=== PATIENT | female | born 1995 | race African-American/Black ===

== ENCOUNTER 2020-07-31 20:25 | Emergency (ER) | payer OTHER ==
[~2020-07-31] VITALS: Ht 160 cm; Wt 63.0 kg
[2020-07-31 21:55] LABS: BASO % 0.5 % (0.0-1.0); EOS # 0.1 10^3/uL (0.0-0.5); EOS % 1.2 % (0.0-3.0); HEMATOCRIT 38.6 % (36.0-47.0); HEMOGLOBIN 11.2 g/dl (12.0-15.5); LYMPH # 2.7 10^3/uL (1.5-5.0); LYMPH % 45.2 % (24.0-44.0); MONO # 0.6 10^3/uL (0.0-0.8); MONO % 10.4 % (0.0-5.0); NEUTROPHILS # 2.5 10^3/uL (1.5-8.5); NEUTROPHILS % 42.5 % (36.0-66.0); PLATELET COUNT, AUTOMATED 319 10^3/uL (150-450); RED BLOOD COUNT 5.08 10^6/uL (4.00-5.40); WHITE BLOOD COUNT 5.9 10^3/uL (4.0-10.0)
[2020-07-31 22:20] LABS: HCG, SERUM QUALITATIVE NEGATIVE (NEGATIVE)
[2020-07-31 22:23] LABS: BLOOD UREA NITROGEN 18 MG/DL (7-18); GLUCOSE, FASTING 76 MG/DL (70-100)
[2020-07-31 22:24] LABS: ALBUMIN 3.5 GM/DL (3.2-5.2); ALT/SGPT 16 U/L (12-78); BILIRUBIN,DIRECT < 0.1 MG/DL (0.0-0.2); BILIRUBIN,TOTAL 0.2 MG/DL (0.2-1.0); CALCIUM LEVEL 9.1 MG/DL (8.5-10.1); CARBON DIOXIDE LEVEL 29 MEQ/L (21-32); CHLORIDE LEVEL 105 MEQ/L (98-107); GLOMERULAR FILTRATION RATE > 60.0 (>60); LIPASE 99 U/L (73-393); POTASSIUM SERUM 4.3 MEQ/L (3.5-5.1); SODIUM LEVEL 139 MEQ/L (136-145); TOTAL PROTEIN 7.7 GM/DL (6.4-8.2)
[2020-07-31] MEDS ORDERED: KETOROLAC 30 MG/ML 1ML VIAL IV ONE (23:15)
--- NOTE | 2020-08-01 00:55 | REPVR ---
PROCEDURE INFORMATION: Exam: US Pelvis Complete, Transabdominal and US Pelvis, Transvaginal Exam date and time: 08/01/2020 12:13 AM Age: 24 years old Clinical indication: Pelvic pain TECHNIQUE: Imaging protocol: Real-time transabdominal and transvaginal pelvic ultrasound (complete) with image documentation. Transvaginal imaging was used for better evaluation of the endometrium, adnexa, and/or cervix. COMPARISON: No relevant prior studies available. FINDINGS: Uterus/cervix: Uterus measures 6.8 x 3.6 x 4.9 cm. Endometrium measures 17 mm. Right adnexa: Right ovary measures 3.8 x 1.7 x 2.4 cm. Negative for right ovarian torsion. Complex tubular structure at the right adnexa adjacent to the right ovary measuring up to 5.9 x 0.9 x 4.0 cm. Left adnexa: Left ovary measures 2.6 x 1.6 x 2.2 cm. Negative for left ovarian torsion. Intraperitoneal space: No intraperitoneal fluid. Urinary bladder: Normal. IMPRESSION: 1. Complex tubular structure at the right adnexal adjacent to the right ovary measuring up to 5.9 x 0.9 x 4.0 cm. Consider pyosalpinx or hematosalpinx. 2. Thickened endometrium measures 17 mm. Electronically signed by: Jeremiah Drake On 08/01/2020 00:55:58 AM
[2020-08-01] MEDS ORDERED: ISOVUE-370 76% 100ML VIAL As Ordered ONE (01:33)
[2020-08-01 01:36] LABS: HCG, SERUM QUANTITATIVE < 1.0 MIU/ML
--- NOTE | 2020-08-01 01:56 | REPVR ---
PROCEDURE INFORMATION: Exam: CT Abdomen And Pelvis With Contrast Exam date and time: 08/01/2020 1:27 AM Age: 24 years old Clinical indication: Abdominal pain; Localized; Right lower quadrant (rlq); Additional info: Rlq pain, hematosalpinx on US, rule out appendicitis TECHNIQUE: Imaging protocol: Computed tomography of the abdomen and pelvis with intravenous contrast. Radiation optimization: All CT scans at this facility use at least one of these dose optimization techniques: automated exposure control; mA and/or kV adjustment per patient size (includes targeted exams where dose is matched to clinical indication); or iterative reconstruction. Contrast material: ISO; Contrast volume: 100 ml; Contrast route: INTRAVENOUS (IV); COMPARISON: US PELVIC NON-OB COMPLETE 07/31/2020 11:55 PM FINDINGS: Liver: Normal. No mass. Gallbladder and bile ducts: Normal. No calcified stones. No ductal dilation. Pancreas: Normal. No ductal dilation. Spleen: Normal. No splenomegaly. Adrenal glands: Normal. No mass. Kidneys and ureters: Normal. No hydronephrosis. Stomach and bowel: Unremarkable. No obstruction. No mucosal thickening. Appendix: The appendix is normal. Intraperitoneal space: Trace free fluid within the pelvis. Vasculature: Unremarkable. No abdominal aortic aneurysm. Lymph nodes: Mild right lower quadrant adenopathy. Urinary bladder: Unremarkable as visualized. Reproductive: Tubular cystic structure at the right adnexa measuring 3.5 by 2.4 by 3.5 cm. There are adjacent infiltrative changes. Bones/joints: Unremarkable. No acute fracture. Soft tissues: Small fat containing umbilical hernia. IMPRESSION: 1. Tubular cystic structure at the right adnexa with adjacent infiltrative changes, better visualized on recent ultrasound examination. Suspect pyosalpinx/TOA. 2. Normal appendix. Electronically signed by: Jeremiah Drake On 08/01/2020 01:57:04 AM
[2020-08-01] MEDS ORDERED: NORCO 5/325MG TABLET (BULK FOR ED) PO ONE (02:00)
[2020-08-01] MEDS ORDERED: NAPR-837 PO (02:10)
[2020-08-01] MEDS ORDERED: HYDR-3713 PO (02:10)
[2020-08-01 02:22] VITALS: BP 112/64
--- NOTE | 2020-08-01 07:47 | ED PDOC ---
Post-Departure Follow-Up radiology report faxed to Megan Chaudhari MD Aug 01, 2020 07:47
== END 2020-08-01 02:24 | disposition home or self-care (01) ==
LOC: M ED 20:25
DX: N83.6 Hematosalpinx (principal); R10.9 Unspecified abdominal pain
CPT/HCPCS: 74177; 76856; 80048; 80076; 81001; 83690; 84702; 84703; 85025; 96374; 99284; J1885; Q9967

== ENCOUNTER 2021-04-17 15:53 | Emergency (ER) | payer OTHER ==
[~2021-04-17] VITALS: Ht 160 cm; Wt 71.2 kg
[2021-04-17 15:53] VITALS: BP 143/74
[~2021-04-17 15:53] MED LIST: HYDR-3713 PO; NAPR-837 PO
[2021-04-17 17:26] LABS: BASO % 0.5 % (0.0-1.0); EOS # 0.1 10^3/uL (0.0-0.5); EOS % 1.3 % (0.0-3.0); HEMATOCRIT 38.2 % (36.0-47.0); HEMOGLOBIN 11.6 g/dl (12.0-15.5); LYMPH # 2.4 10^3/uL (1.5-5.0); MEAN CORPUSCULAR HEMOGLOBIN 22.9 pg (27.0-33.0); MEAN CORPUSCULAR HGB CONC 30.4 g/dl (32.0-36.5); MEAN CORPUSCULAR VOLUME 75.3 fl (80.0-96.0); MONO # 0.5 10^3/uL (0.0-0.8); NEUTROPHILS # 3.1 10^3/uL (1.5-8.5); NEUTROPHILS % 50.9 % (36.0-66.0); PLATELET COUNT, AUTOMATED 376 10^3/uL (150-450); RED BLOOD COUNT 5.07 10^6/uL (4.00-5.40); WHITE BLOOD COUNT 6.2 10^3/uL (4.0-10.0)
== END 2021-04-17 18:11 | disposition home or self-care (01) ==
LOC: M ED 15:53
DX: Z32.02 Encounter for pregnancy test, result negative (principal); N93.9 Abnormal uterine and vaginal bleeding, unspecified

== ENCOUNTER → 2021-07-16 | Outpatient (CLI) | payer OTHER | LOC: M PLALAB 15:29 | PROVIDERS: ATTEND Surgery | DX: Z13.79 Encounter for other screening for genetic and chromosomal anomalies (principal) ==

== ENCOUNTER → 2021-08-14 | Outpatient (CLI) | payer OTHER | LOC: M WHC 15:01 | PROVIDERS: ATTEND Surgery | DX: R92.8 Other abnormal and inconclusive findings on diagnostic imaging of breast (principal); N63.22 Unspecified lump in the left breast, upper inner quadrant ==

== ENCOUNTER → 2021-08-20 | Outpatient (CLI) | payer OTHER ==
[2021-08-20 13:00] VITALS: BP 108/60
== END ==
LOC: M WHCPRO 10:45
PROVIDERS: ATTEND Surgery
DX: N60.82 Other benign mammary dysplasias of left breast (principal)

== ENCOUNTER → 2021-11-27 | Outpatient (CLI) | payer OTHER ==
[~2021-11-27] MED LIST changes: +PRENTAB53 PO
== END ==
LOC: M LABSMTC 09:06
PROVIDERS: ATTEND Anesthesiology
DX: Z01.812 Encounter for preprocedural laboratory examination (principal); Z20.822 Contact with and (suspected) exposure to COVID-19

== ENCOUNTER 2021-12-02 08:01 | Observation (INO) | payer OTHER ==
[2021-12-02] VITALS (7 sets, daily range): BP systolic 101–136; BP diastolic 50–88
[~2021-12-02] VITALS: Ht 160 cm; Wt 72.6 kg
[~2021-12-02 08:01] MED LIST changes: +HEPARIN SOD (PORCINE) 5000UNITS/ML 1ML VIAL/SYRINGE SQ ONE; +LIDOCAINE 1% MDV 20ML VIAL SQ PRN; +LR 1,000 ML IV ONE; +ceFAZolin SOD 2 GM in IV 1 EA IV ONE
[2021-12-02] MEDS ORDERED: fentaNYL 250 MCG/5 ML INJECTION As Ordered ONE (08:04)
[2021-12-02] MEDS ORDERED: ROCURONIUM BROMIDE 50 MG/5 ML VIAL As Ordered ONE ×2 (08:04→11:22)
[2021-12-02] MEDS ORDERED: MIDAZOLAM INJ 2MG/2ML VIAL (J2250 PER 1MG) As Ordered ONE (08:04)
[2021-12-02] MEDS ORDERED: propofoL 200 MG/20 ML VIAL As Ordered ONE (08:04)
[2021-12-02] MEDS ORDERED: LIDOCAINE 2% 100MG/5ML SDV (FOR ANES.) As Ordered ONE (08:04)
[2021-12-02] MEDS ORDERED: BUPIVACAINE HCL 0.25% 10ML VIAL As Ordered ONE (09:29)
[2021-12-02] MEDS ORDERED: BUPIVACAINE LIPOSOME/PF 1.3% 20ML VIAL (13.3MG/ML)(EXPAREL) As Ordered ONE (09:29)
[2021-12-02] MEDS ORDERED: SCOPOLAMINE 1MG TRANSDERMAL PATCH As Ordered ONE (10:19)
[2021-12-02] MEDS ORDERED: dexameTHASONE 4 MG/ML 1ML VIAL (J1100 PER 1MG) As Ordered ONE (10:31)
[2021-12-02] MEDS ORDERED: KETOROLAC 60MG 2ML VIAL As Ordered ONE (10:31)
[2021-12-02] MEDS ORDERED: ONDANSETRON 4MG/2ML VIAL As Ordered ONE (10:31)
[2021-12-02] MEDS ORDERED: ACETAMINOPHEN 1000MG 100ML IV BTL (OFIRMEV) (J0131 PER 10MG) As Ordered ONE (11:38)
[2021-12-02] MEDS ORDERED: HYDROmorphone HCL 2MG/ML 1ML VIAL As Ordered ONE (12:07)
[2021-12-02] MEDS ORDERED: SUGAMMADEX SODIUM 500 MG/5 ML VIAL (BRIDION) As Ordered ONE (12:53)
[2021-12-02] MEDS ORDERED: ONDANSETRON 4MG/2ML VIAL IV PRN ×2 (13:50→14:10)
[2021-12-02] MEDS ORDERED: ACETAMINOPHEN TAB 650MG DOSE (2X325MG) PO PRN (13:50)
[2021-12-02] MEDS ORDERED: MORPHINE 2 MG/ML 1ML VIAL IV PRN (13:50)
[2021-12-02] MEDS ORDERED: fentaNYL 100 MCG/2 ML INJECTION IV PRN (14:10)
[2021-12-02] MEDS ORDERED: LR 1,000 ML IV SCH (14:10)
[2021-12-02] MEDS ORDERED: oxyCODONE 5MG TAB PO PRN (14:10)
[2021-12-02] MEDS: ceFAZolin SOD 2 GM in IV 1 EA IV SCH (17:05)
[2021-12-02] MEDS: traMADol 50 MG TAB PO PRN (17:06)
[2021-12-02] MEDS: LR 1,000 ML IV SCH (19:34)
[2021-12-02] MEDS: HEPARIN SOD (PORCINE) 5000UNITS/ML 1ML VIAL/SYRINGE SQ SCH (22:17)
[2021-12-03 00:30] VITALS: BP 118/68
[2021-12-03] MEDS: LR 1,000 ML IV SCH (01:36)
[2021-12-03] MEDS: ceFAZolin SOD 2 GM in IV 1 EA IV SCH ×2 (01:36→09:57)
[2021-12-03 04:30] VITALS: BP 112/55
[2021-12-03] MEDS: HEPARIN SOD (PORCINE) 5000UNITS/ML 1ML VIAL/SYRINGE SQ SCH ×2 (05:30→14:00)
[2021-12-03] MEDS ORDERED: TRAM50TA2 PO (10:03)
[2021-12-03] MEDS: traMADol 50 MG TAB PO PRN (13:23)
== END 2021-12-03 14:05 | disposition home or self-care (01) ==
LOC: M SDC 08:01 → M MS5PR 08:02
PROVIDERS: ADMIT Surgery; ATTEND Surgery
DX: D24.2 Benign neoplasm of left breast (principal); N62 Hypertrophy of breast
CPT/HCPCS: 19120; 19316; 19318; 36415; 86850; 86900; 86901; 88305; 88307; 96365; 96366; 96375; C9290; J0131; J0690; J1100; J1170; J1644; J1885; J2250; J2270; J2405; J3010

== ENCOUNTER 2023-01-04 14:53 | Emergency (ER) | payer OTHER ==
[~2023-01-04] VITALS: Ht 160 cm; Wt 73.0 kg
[~2023-01-04 14:53] MED LIST changes: -HEPARIN SOD (PORCINE) 5000UNITS/ML 1ML VIAL/SYRINGE SQ ONE; -LIDOCAINE 1% MDV 20ML VIAL SQ PRN; -LR 1,000 ML IV ONE; +TRAM50TA2 PO; -ceFAZolin SOD 2 GM in IV 1 EA IV ONE
[2023-01-04 16:00] LABS: BASO % 0.3 % (0.0-1.0); EOS # 0.1 10^3/uL (0.0-0.5); EOS % 1.6 % (0.0-3.0); HEMATOCRIT 38.2 % (36.0-47.0); HEMOGLOBIN 12.1 g/dl (12.0-15.5); LYMPH # 1.9 10^3/uL (1.5-5.0); LYMPH % 28.9 % (24.0-44.0); MEAN CORPUSCULAR HEMOGLOBIN 23.4 pg (27.0-33.0); MEAN CORPUSCULAR HGB CONC 31.7 g/dl (32.0-36.5); MONO # 0.6 10^3/uL (0.0-0.8); NEUTROPHILS % 60.1 % (36.0-66.0); PLATELET COUNT, AUTOMATED 361 10^3/uL (150-450); RED BLOOD COUNT 5.16 10^6/uL (4.00-5.40); WHITE BLOOD COUNT 6.7 10^3/uL (4.0-10.0)
[2023-01-04 16:20] LABS: LIPASE 34 U/L (12-53)
[2023-01-04 16:22] LABS: ALBUMIN 3.6 G/DL (3.2-5.2); ALKALINE PHOSPHATASE 59 U/L (46-116); ALT/SGPT 11 U/L (7.0-40); AST/SGOT < 8 U/L (<34); BILIRUBIN,DIRECT < 0.1 MG/DL (<0.4); BILIRUBIN,TOTAL 0.3 MG/DL (0.3-1.2); BLOOD UREA NITROGEN 12 MG/DL (9-23); CALCIUM LEVEL 8.7 MG/DL (8.5-10.1); CARBON DIOXIDE LEVEL 25 MMOL/L (20-31); CHLORIDE LEVEL 104 MMOL/L (98-107); CREATININE FOR GFR 0.66 MG/DL (0.55-1.30); GLOMERULAR FILTRATION RATE > 60.0 (>60); GLUCOSE, FASTING 75 MG/DL (60-100); SODIUM LEVEL 137 MMOL/L (136-145); TOTAL PROTEIN 7.6 G/DL (5.7-8.2)
[2023-01-04 18:16] LABS: HCG, SERUM QUANTITATIVE 3991.8 MIU/ML (<4.2)
[2023-01-04] MEDS ORDERED: NITR-67 PO (19:21)
[2023-01-04] MEDS ORDERED: NITROFURANTOIN (MACROBID) 100 MG CAP PO ONE (19:25)
[2023-01-04 19:48] VITALS: BP 116/83
== END 2023-01-04 20:02 | disposition home or self-care (01) ==
LOC: M ED 14:53
DX: O23.41 Unspecified infection of urinary tract in pregnancy, first trimester (principal); Z3A.01 Less than 8 weeks gestation of pregnancy; Z79.810 Long term (current) use of selective estrogen receptor modulators (SERMs); Z79.899 Other long term (current) drug therapy

== ENCOUNTER 2023-07-05 15:00 | Outpatient (CLI) | payer OTHER ==
[~2023-07-05] VITALS: Ht 160 cm; Wt 85.7 kg
[~2023-07-05 15:00] MED LIST changes: +NITR-67 PO
[2023-07-05 15:18] VITALS: BP 120/71
[2023-07-05] MEDS ORDERED: ACET-907 PO (15:22)
[2023-07-05] MEDS ORDERED: HOME MED LIST COMPLETE! XX SCH (15:25)
[2023-07-05 16:29] LABS: APPEARANCE, URINE CLEAR (CLEAR); BACTERIA, URINE AUTO NEGATIVE (NEGATIVE); BILIRUBIN, URINE AUTO NEGATIVE (NEGATIVE); BLOOD, URINE BLOOD NEGATIVE (NEGATIVE); COLOR, URINE STRAW (YELLOW); GLUCOSE, URINE (UA) AUTO NEGATIVE (NEGATIVE); KETONE, URINE AUTO NEGATIVE (NEGATIVE); LEUKOCYTE ESTERASE, URINE AUTO NEGATIVE (NEGATIVE); MUCUS, URINE SMALL (NEGATIVE); NITRITE, URINE AUTO NEGATIVE (NEGATIVE); PROTEIN, URINE AUTO NEGATIVE (NEGATIVE); RBC, URINE AUTO 0 /HPF (0-3); SPECIFIC GRAVITY URINE AUTO 1.008 (1.002-1.035); SQUAMOUS EPITHELIAL CELL UR AU 4 /HPF (0-6); UROBILINOGEN, URINE AUTO 0.2 mg/dL (0.0-2.0); WBC, URINE AUTO 2 /HPF (0-3)
== END 2023-07-05 16:25 | disposition home or self-care (01) ==
LOC: M LDO 15:00
PROVIDERS: ATTEND Advanced Practice Midwife
DX: O26.893 Other specified pregnancy related conditions, third trimester (principal); R25.2 Cramp and spasm; Z3A.30 30 weeks gestation of pregnancy
CPT/HCPCS: 59025; 81001; 87086; G0463

== ENCOUNTER 2023-08-19 11:34 | Outpatient (CLI) | payer OTHER ==
[~2023-08-19] VITALS: Ht 160 cm; Wt 89.9 kg
[~2023-08-19 11:34] MED LIST changes: +ACET-907 PO
[2023-08-19 11:56] VITALS: BP 107/63; O2SAT 98
[2023-08-19] MEDS ORDERED: VITA500T9 PO (12:01)
[2023-08-19] MEDS ORDERED: SERT25TA21 PO (12:01)
[2023-08-19] MEDS ORDERED: DOCU100C16 PO (12:01)
[2023-08-19] MEDS ORDERED: FERR325T19 PO (12:01)
[2023-08-19] MEDS ORDERED: HOME MED LIST COMPLETE! XX SCH (12:05)
[2023-08-19 13:01] VITALS: BP 95/53
== END 2023-08-19 14:38 | disposition home or self-care (01) ==
LOC: M LDO 11:34
PROVIDERS: ATTEND Advanced Practice Midwife
DX: O26.893 Other specified pregnancy related conditions, third trimester (principal); N89.8 Other specified noninflammatory disorders of vagina; Z3A.37 37 weeks gestation of pregnancy; Z79.899 Other long term (current) drug therapy
CPT/HCPCS: 59025; 76815; G0463

== ENCOUNTER 2023-08-31 14:49 | Outpatient (CLI) | payer OTHER ==
[~2023-08-31] VITALS: Ht 160 cm; Wt 92.7 kg
[~2023-08-31 14:49] MED LIST changes: +DOCU100C16 PO; +FERR325T19 PO; +SERT25TA21 PO; +VITA500T9 PO
[2023-08-31 15:08] VITALS: BP 119/84
== END 2023-08-31 16:00 | disposition home or self-care (01) ==
LOC: M LDO 14:49
PROVIDERS: ATTEND Obstetrics & Gynecology
DX: O26.893 Other specified pregnancy related conditions, third trimester (principal); R25.2 Cramp and spasm; M54.9 Dorsalgia, unspecified; Z3A.39 39 weeks gestation of pregnancy
CPT/HCPCS: 59025; G0463

== ENCOUNTER 2023-09-06 11:13 | Outpatient (CLI) | payer OTHER ==
[~2023-09-06] VITALS: Ht 160 cm; Wt 89.4 kg
[2023-09-06 11:28] VITALS: BP 106/70
[2023-09-06 13:46] VITALS: BP 176/112
[2023-09-06 13:47] VITALS: BP 131/90
== END 2023-09-06 15:17 | disposition home or self-care (01) ==
LOC: M LDO 11:13
PROVIDERS: ATTEND Advanced Practice Midwife
DX: O47.1 False labor at or after 37 completed weeks of gestation (principal); Z3A.39 39 weeks gestation of pregnancy; Z79.899 Other long term (current) drug therapy
CPT/HCPCS: 59025; G0463

== ENCOUNTER 2023-09-07 11:07 | Inpatient (IN) | payer OTHER ==
[2023-09-07] VITALS (7 sets, daily range): BP systolic 120–173; BP diastolic 66–109; O2SAT 99–100
[~2023-09-07] VITALS: Ht 160 cm; Wt 91.9 kg
[2023-09-07] MEDS ORDERED: HOME MED LIST COMPLETE! XX SCH (11:20)
[2023-09-07] MEDS ORDERED: OXYTOCIN DRIP 30 UNITS in IV 1 EA IV PRN (11:35)
[2023-09-07] MEDS ORDERED: OXYTOCIN INJ 10UNITS/ML 1ML VIAL IM PRN (11:35)
[2023-09-07] MEDS ORDERED: METHYLERGONOVINE MALEATE 0.2MG/ML 1ML VIAL IM PRN (11:35)
[2023-09-07] MEDS ORDERED: TRANEXAMIC ACID INJection 1,000 MG in NS 100 ML IV PRN (11:35)
[2023-09-07] MEDS ORDERED: CARBOPROST TROMETHAMINE 250 MCG/ML AMP IM PRN (11:35)
[2023-09-07] MEDS: LR 1,000 ML IV SCH (11:44)
[2023-09-07] MEDS: LACTATED RINGER'S 1000 ML IV STA (11:44)
[2023-09-07 12:11] LABS: HEMATOCRIT 37.4 % (36.0-47.0); HEMOGLOBIN 11.6 g/dl (12.0-15.5); MEAN CORPUSCULAR HEMOGLOBIN 23.1 pg (27.0-33.0); MEAN CORPUSCULAR VOLUME 74.5 fl (80.0-96.0); PLATELET COUNT, AUTOMATED 216 10^3/uL (150-450); RED BLOOD COUNT 5.02 10^6/uL (4.00-5.40)
[2023-09-07 13:06] LABS: URIC ACID 4.6 MG/DL (3.1-7.8)
[2023-09-07 13:08] LABS: LDH LACTATE DEHYDROGENASE 233 U/L (120-246)
[2023-09-07 13:09] LABS: ALT/SGPT 11 U/L (7.0-40); AST/SGOT 14 U/L (<34); BILIRUBIN,TOTAL 0.3 MG/DL (0.3-1.2); CREATININE FOR GFR 0.52 MG/DL (0.55-1.30); GLOMERULAR FILTRATION RATE > 60.0 (>60)
[2023-09-07] MEDS: OXYTOCIN DRIP 30 UNITS in IV 1 EA IV PRN ×2 (13:30→13:58)
[2023-09-07] MEDS: LIDOCAINE 1% MDV 20ML VIAL INFIL PRN (13:32)
[2023-09-07] MEDS ORDERED: ACETAMINOPHEN TAB 650MG DOSE (2X325MG) PO PRN (13:50)
[2023-09-07] MEDS ORDERED: DOCUSATE SODIUM 100MG CAPSULE PO PRN (13:50)
[2023-09-07] MEDS ORDERED: METHYLERGONOVINE MALEATE 0.2 MG TAB PO PRN (13:50)
[2023-09-07] MEDS ORDERED: IBUPROFEN 600MG TAB PO PRN (13:50)
[2023-09-07] MEDS: OXYTOCIN DRIP 30 UNITS in IV 1 EA IV SCH (14:09)
[2023-09-07] MEDS: IBUPROFEN 800 MG TAB PO PRN (14:48)
[2023-09-07] MEDS: DIBUCAINE 1% OINTMENT 30GM TOP PRN (16:14)
[2023-09-08 06:00] VITALS: BP 121/74; O2SAT 99
[2023-09-08] MEDS: PRENATAL VITAMINS CHEWABLE TABLET PO SCH (09:21)
[2023-09-08] MEDS: ACETAMINOPHEN 500 MG TAB PO PRN (09:23)
[2023-09-08 18:00] VITALS: BP 118/60; O2SAT 100
[2023-09-09 06:00] VITALS: BP 112/53; O2SAT 100
[2023-09-09] MEDS: MEASLES,MUMPS,RUBELLA VACCINE INJ (MMR-II) SC.IMMUN ONE (07:17)
[2023-09-09 14:00] VITALS: BP 120/66; O2SAT 97
== END 2023-09-09 13:45 | disposition home or self-care (01) | DRG 807 ==
LOC: M LDO 11:07 → M LDI 11:23 → M OBS 16:00
PROVIDERS: ADMIT Obstetrics & Gynecology; ATTEND Obstetrics & Gynecology
PROC: 10E0XZZ Delivery of Products of Conception, External Approach (ICD-10-PCS; principal; 2023-09-07)
PROC: 0HQ9XZZ Repair Perineum Skin, External Approach (ICD-10-PCS; 2023-09-07)
PROC: 10907ZC Drainage of Amniotic Fluid, Therapeutic from Products of Conception, Via Natural or Artificial Opening (ICD-10-PCS; 2023-09-07)
DX: O99.02 Anemia complicating childbirth (principal); Z37.0 Single live birth; Z3A.40 40 weeks gestation of pregnancy; D64.9 Anemia, unspecified; O70.0 First degree perineal laceration during delivery; O26.00 Excessive weight gain in pregnancy, unspecified trimester; O36.0190 Maternal care for anti-D [Rh] antibodies, unspecified trimester, not applicable or unspecified

== ENCOUNTER → 2024-08-10 | Outpatient (CLI) | payer OTHER | LOC: M WHC 10:38 | PROVIDERS: ATTEND Specialist | DX: O36.5990 Maternal care for other known or suspected poor fetal growth, unspecified trimester, not applicable or unspecified (principal) ==

== ENCOUNTER → 2024-08-24 | Outpatient (REF) | payer OTHER | LOC: M SFHCWAGY 16:58 | PROVIDERS: ATTEND Specialist | DX: Z34.83 Encounter for supervision of other normal pregnancy, third trimester (principal) ==